=== PATIENT | male | born 1995 | race Caucasian/White ===

== ENCOUNTER 2019-05-21 11:11 | Emergency (ER) | payer BC, MEDICAID ==
[2019-05-21 11:54] VITALS: BP 119/62
--- NOTE | 2019-05-21 12:38 | UC ---
Lower Extremity/Ankle HPI - HPI Summary HPI Summary: 24 yo male presents with left calf pain. He tells me that over the last few weeks he has noticed intermittent swelling to his left calf. This morning he noticed the calf was swollen and painful and thinks he felt a bump inside. He has a history of lipomas on various areas of his body and thinks this may be one of those, but is unsure. His pain and swelling are improved with rest and elevation. No recent travel. Denies recent illness, injury, fever, chills, SOB, chest pain. No fam hx of blood clots. - History of Current Complaint Chief Complaint: UCLowerExtremity Stated Complaint: LOWER LEG PAIN Time Seen by Provider: 05/21/19 12:37 Hx Obtained From: Patient Onset/Duration: Gradual Onset Severity Initially: Mild Severity Currently: Mild Pain Intensity: 4 Pain Scale Used: 0-10 Numeric - Allergies/Home Medications Allergies/Adverse Reactions: Allergies Allergy/AdvReac Type Severity Reaction Status Date / Time MS Bupropion Allergy Unknown Verified 09/07/16 18:56 [From Wellbutrin] Reaction Details Home Medications: Home Medications Venlafaxine HCl [Venlafaxine HCl ER] 1 powder PO DAILY 05/21/19 [History Confirmed 05/21/19] lamoTRIgine TAB(*) [Lamictal TAB(*)] 1 tab PO DAILY 05/21/19 [History Confirmed 05/21/19] PMH/Surg Hx/FS Hx/Imm Hx Psychological History: Bipolar Disorder Other History Of: Negative For: HIV, Hepatitis B, Hepatitis C - Surgical History Surgical History: Yes Surgery Procedure, Year, and Place: right lower leg - infected area - Family History Known Family History: Positive: Respiratory Disease - brother with asthma, Other - mental health issues, especially anxiety (aunt). Negative: Cardiac Disease, Hypertension - Social History Lives: With Family Alcohol Use: Rare Substance Use Type: None Substance Use Comment - Amount & Last Used: Quit smoking [facility] 02/19 Smoking Status (MU): Never Smoked Tobacco - Immunization History Most Recent Influenza Vaccination: appointment next week Most Recent Tetanus Shot: not sure Most Recent Pneumonia Vaccination: none Review of Systems All Other Systems Reviewed And Are Negative: Yes Constitutional: Positive: Negative Skin: Positive: Negative Respiratory: Positive: Negative Cardiovascular: Positive: Negative Neurovascular: Positive: Negative Musculoskeletal: Positive: Other: - Left calf pain Neurological: Positive: Negative Psychological: Positive: Negative Physical Exam - Summary Physical Exam Summary: GENERAL: NAD. WDWN. No pain distress. SKIN: No rashes, sores, lesions, or open wounds. CHEST: No accessory muscle use. Breathing comfortably and in no distress. CV: Pulses intact PT and DP. Cap refill <2seconds MSK: LEFT CALF: 45cm compared to 44cm in right calf. Mild TTP about mid calf. No nodule appreciated. Negative Tommy sign. NEURO: Alert. Sensations intact and symmetric B/L LEs PSYCH: Age appropriate behavior. Triage Information Reviewed: Yes Vital Signs: Initial Vital Signs Temp 98 F 05/21/19 11:50 Pulse 81 05/21/19 11:50 Resp 18 05/21/19 11:50 BP 119/62 05/21/19 11:50 Pulse Ox 100 05/21/19 11:50 Vital Signs Reviewed: Yes Lower Extremity Course/Dx - Course Course Of Treatment: US: IMPRESSION: 1. NO EVIDENCE FOR DEEP VENOUS THROMBOSIS. 2. SOFT TISSUE MASS IN THE MID MEDIAL THIGH. THIS COULD BE FURTHER EVALUATED WITH MR IMAGING. XR: IMPRESSION: NO EVIDENCE OF FRACTURE. I suspect this soft tissue mass in his thigh is a lipoma as he has had this there for years and has not changed. Discussed results with pt and advised him to f/u with his PCP for further eval of the area and his left calf symptoms. - Differential Dx/Diagnosis Provider Diagnosis: Mass of soft tissue of left lower extremity Discharge - Sign-Out/Discharge Documenting (check all that apply): Patient Departure All imaging exams completed and their final reports reviewed: Yes - Discharge Plan Condition: Stable Disposition: HOME Patient Education Materials: Lipoma (ED), Soft Tissue Mass (ED) Forms: *Work Release Referrals: Diego Davidson MD [Primary Care Provider] - 2 Weeks Additional Instructions: If you develop a fever, shortness of breath, chest pain, new or worsening symptoms - please call your PCP or go to the ED immediately. Your XR was normal today. Your ultrasound showed that you have a mass in the soft tissue of your leg. Given your history of soft tissue lipomas elsewhere on your body, this could be another one of those - but further investigation is warranted. Please schedule an appointment with your primary doctor for a recheck within 2- 3 weeks Continue to rest, ice, and elevate your leg to reduce pain and swelling. - Billing Disposition and Condition Condition: STABLE Disposition: Home
== END 2019-05-21 13:59 | disposition home or self-care (01) ==
LOC: UCEAST 11:11
DX: R22.42 Localized swelling, mass and lump, left lower limb (principal); F31.9 Bipolar disorder, unspecified
CPT/HCPCS: 99211; G0463

== ENCOUNTER 2019-11-14 18:56 | Emergency (ER) | payer BC, MEDICAID ==
--- OUTSIDE RECORDS SUMMARY | 2019-11-14 19:02 | XMS REPORT ---
:1995 Author Organization [facility] Care Team Providers Name Role Phone Gordo Gregorio Primary Care Physician Unavailable Allergies, Adverse Reactions, Alerts Allergy Code CodeSystem Reaction Severity Criticality Status Start Substance Date Moderate Medications Medication Medication Medication Start Stop Route Dose Status Fill Code CodeSystem Date Date Instructions venlafaxine 093699 RxNorm 2019- oral 37.5 mg 1 active 1 tablet 02-14 tablet once a day extended for 30 day(s) release 24hr once a day lamotrigine 203741 RxNorm 2019- oral 100 mg 1 active Take 1 tablet 02-14 tablet once a day once a for 30 day(s) day lamotrigine 078620 RxNorm 2019- oral 25 mg completed for 30 3-05 09- tablet day(s) venlafaxine 891830 RxNorm 2019- oral 37.5 mg completed for 30 -05 09- tablet day(s) extended release 24hr Problems Problem Name Code CodeSystem Alternate Alternate Start End Status Narrative Code CodeSystem Date Date Bipolar II 16007907 SNOMED-CT Active disorder 3-22 Bipolar II 15438119 SNOMED-CT Active disorder 3-22 Generalized 90267328 SNOMED-CT Active anxiety 3-27 disorder Relevant diagnostic tests/laboratory data Narrative No Information Procedures Procedure Code CodeSystem Target Date of Status Service Device Device Device Name Site Procedure Delivery Code Name UID Location Psychotherap [id number] SNOMED-CT () 2019-06-20 complete Mental y, 45 04 d Health- minutes with [facility] patient [address], [id number] [phone] Psychotherap [id number] SNOMED-CT () 2019-07-12 complete Mental y, 45 04 d Health- minutes with [address], [phone] Psychotherap [id number] SNOMED-CT () 2019-08-01 complete Mental y, 45 04 d Health- minutes with [facility] patient [address], [id number] [phone] Psychotherap [id number] SNOMED-CT () 2019-09-06 complete Mental y, 45 04 d Health- minutes with [facility] patient [address], [id number] [phone] Psychotherap [id number] SNOMED-CT () 2019-04-25 complete Mental y, 45 04 d Health- minutes with [facility] patient [address], [phone] [phone] Psychotherap [id number] SNOMED-CT () 2019-04-16 complete Mental y, 45 04 d Health- minutes with [facility] patient [address], [phone] [phone] Psychotherap [id number] SNOMED-CT () 2019-02-11 complete Mental y, 45 04 d Health- minutes with [facility] patient [address], [phone] Psychotherap [id number] SNOMED-CT () 2019-02-18 complete Mental y, 45 04 d Health- minutes with [facility] patient [address], [id number] Psychotherap [id number] SNOMED-CT () 2019-02-25 complete Mental y, 45 04 d Health- minutes with [facility], [id number] [phone] Psychotherap [id number] SNOMED-CT () 2019-03-06 complete Mental y, 45 04 d Health- minutes with [facility] patient [address], [phone] Psychotherap [id number] SNOMED-CT () 2019-03-20 complete Mental y, 45 04 d Health- minutes with [facility] patient [address], [phone] Office or [id number] SNOMED-CT () 2019-02-14 complete Mental other 7 d Health- outpatient [facility] visit for County [address], established [id number] patient, [phone] which requires at least 2 of these 3 chinchilla components: An expanded problem focused history; An expanded problem focused examination; Medical decision making of low Office or [id number] SNOMED-CT () 2019-04-19 complete Mental other 6 d Health- outpatient [facility] visit for [address], established [phone] patient, [phone] which requires at least 2 of these 3 chinchilla components: A problem focused history; A problem focused examination; Straightforw sukh medical decision making. Counselin Office or [id number] SNOMED-CT () 2019-07-12 complete Mental other 6 d Health- outpatient [facility] visit for [address], established [id number] patient, [phone] which requires at least 2 of these 3 chinchilla components: A problem focused history; A problem focused examination; Straightforw sukh medical decision making. Counselin Office or [id number] SNOMED-CT () 2019-07-12 complete Mental other 6 d Health- outpatient [facility] visit for [address], established [phone] patient, [phone] which requires at least 2 of these 3 chinchilla components: A problem focused history; A problem focused examination; Straightforw sukh medical decision making. Counselin SNOMED-CT () 2019-02-04 complete Mental d Health[address], [phone] SNOMED-CT () 2019-04-02 complete Mental d Health[address], [phone] SNOMED-CT () 2019-06-04 complete Mental d [address], [phone] Encounters/Encounter Diagnoses Encounter Name Encounter Diagnosis Diagnosis Diagnosis Date of Service Code Code Name CodeSystem Diagnosis Delivery Location [facility] - [id number] Bipolar II SNOMED-CT 2019-09-06 Behavioral Individual 30 disorder Health [facility] [address] [place] [address], [phone] Vital Signs No Information Social History Element Description Description Start End Code CodeSystem AdditionalInfo Date Date SexAssignedAtBirth Male 1994-0 M AdministrativeGender 05-19 Hospital Discharge Instructions Reason For Referral Medical Equipment FDA Assessments
--- OUTSIDE RECORDS SUMMARY | 2019-11-14 19:02 | XMS REPORT ---
:1995 Author Organization [facility] Care Team Providers Name Role Phone Gordo Gregorio Primary Care Physician Unavailable Allergies, Adverse Reactions, Alerts Allergy Code CodeSystem Reaction Severity Criticality Status Start Substance Date Moderate Medications Medication Medication Medication Start Stop Route Dose Status Fill Code CodeSystem Date Date Instructions venlafaxine 602781 RxNorm 2019- oral 37.5 mg completed for 30 01-10- tablet day(s) extended release 24hr venlafaxine 244652 RxNorm 2019- oral 37.5 mg 1 active 1 tablet 02-14 tablet once a day extended for 30 day(s) release 24hr once a day lamotrigine 735051 RxNorm 2019- oral 100 mg 1 active Take 1 tablet 02-14- tablet once a day once a for 30 day(s) day lamotrigine 625497 RxNorm 2019- oral 25 mg completed for 30 01-10 tablet day(s) Problems Problem Name Code CodeSystem Alternate Alternate Start End Status Narrative Code CodeSystem Date Date Bipolar II 92791694 SNOMED-CT 2018- Active disorder 3-22 Generalized 44903746 SNOMED-CT Active anxiety 3-27 disorder Bipolar II 48564964 SNOMED-CT 0 Active disorder 3-22 Relevant diagnostic tests/laboratory data Narrative No Information Procedures Procedure Code CodeSystem Target Date of Status Service Device Device Device Name Site Procedure Delivery Code Name UID Location Psychotherap [id number] SNOMED-CT () 2019-06-20 complete Mental y, 45 04 d Health- minutes with [facility] patient [address], [phone] Psychotherap [id number] SNOMED-CT () 2019-07-12 complete Mental y, 45 04 d Health- minutes with [address], [id number] [phone] Psychotherap [id number] SNOMED-CT () 2019-08-01 complete Mental y, 45 04 d Health- minutes with [address], [id number] [phone] Psychotherap [id number] SNOMED-CT () 2019-09-06 complete Mental y, 45 04 d Health- minutes with [address], [id number] [phone] Psychotherap [id number] SNOMED-CT () 2019-09-26 complete Mental y, 45 04 d Health- minutes with [address], [phone] Psychotherap [id number] SNOMED-CT () 2019-10-02 complete Mental y, 45 04 d Health- minutes with [address], [id number] [phone] Psychotherap [id number] SNOMED-CT () 2019-03-06 complete Mental y, 45 04 d Health- minutes with [address], [phone] Psychotherap [id number] SNOMED-CT () 2019-03-20 complete Mental y, 45 04 d Health- minutes with [address], [phone] Psychotherap [id number] SNOMED-CT () 2019-04-25 complete Mental y, 45 04 d Health- minutes with [address], [id number] [phone] Psychotherap 190644 SNOMED-CT () 2019-10-08 complete Mental y, 45 04 d Health- minutes with [address], [id number] [phone] Psychotherap [id number] SNOMED-CT () 2019-10-15 complete Mental y, 45 04 d Health- minutes with [address], [id number] [phone] Psychotherap [id number] SNOMED-CT () 2019-04-16 complete Mental y, 45 04 d Health- minutes with [address] [place], [phone] Psychotherap [id number] SNOMED-CT () 2019-02-11 complete Mental y, 45 04 d Health- minutes with [facility] patient [address], [phone] Psychotherap [id number] SNOMED-CT () 2019-02-18 complete Mental y, 45 04 d Health- minutes with [facility] patient [address], [id number] [phone] Psychotherap [id number] SNOMED-CT () 2019-02-25 complete Mental y, 45 04 d Health- minutes with [facility] patient [address], [phone] Office or [id number] SNOMED-CT () 2019-02-14 complete Mental other 7 d Health- outpatient [facility] visit for [address], established [id number] patient, [phone] which requires at least 2 of these 3 chinchilla components: An expanded problem focused history; An expanded problem focused examination; Medical decision making of low Office or 186092 SNOMED-CT () 2019-04-19 complete Mental other 6 d Health- outpatient [facility] visit for [address], established [id number] patient, [phone] which requires at least 2 of these 3 chinchilla components: A problem focused history; A problem focused examination; Straightforw sukh medical decision making. Counselin Office or [id number] SNOMED-CT () 2019-07-12 complete Mental other 6 d Health- outpatient [facility] visit for [address], established [id number] patient, [phone] which requires at least 2 of these 3 chinchilla components: A problem focused history; A problem focused examination; Straightforw uskh medical decision making. Counselin Office or [id number] SNOMED-CT () 2019-07-12 complete Mental other 6 d Health- outpatient [facility] visit for [address], established [id number] patient, [phone] which requires at least 2 of these 3 chinchilla components: A problem focused history; A problem focused examination; Straightforw sukh medical decision making. Counselin SNOMED-CT () 2019-02-04 complete Mental d [address], [id number] [phone] SNOMED-CT () 2019-04-02 complete Mental d [address], [phone] SNOMED-CT () 2019-06-04 complete Mental d [address], [phone] Encounters/Encounter Diagnoses Encounter Name Encounter Diagnosis Diagnosis Diagnosis Date of Service Code Code Name CodeSystem Diagnosis Delivery Location [facility] [id number] Bipolar II SNOMED-CT 2019-10-15 Behavioral Individual [address], [phone] Vital Signs No Information Social History Element Description Description Start End Code CodeSystem AdditionalInfo Date Date SexAssignedAtBirth Male 1994-0 M AdministrativeGender 7-14 Hospital Discharge Instructions Reason For Referral Medical Equipment FDA Assessments
--- OUTSIDE RECORDS SUMMARY | 2019-11-14 19:02 | XMS REPORT ---
:1995 Author Name Gordo Gregorio Address [address] [address] Care Team Providers Name Role Phone Gordo Gregorio Unavailable Unavailable Niki Amor Unavailable Unavailable Allergies, Adverse Reactions, Alerts Allergy Code CodeSystem Reaction Severity Status Substance RxNorm Medications Medication Medication Medication Start Route Dose Status Fill Code CodeSystem Date Instructions RxNorm NoCurrentDosage No NoCurrentFrequency Longer Active lamotrigine RxNorm 2019-0 oral 25 mg tablet No for 30 3-07 Longer day(s) Active venlafaxine RxNorm 2019-0 oral 37.5 mg tablet No for 30 3-07 extended release Longer day(s) 24hr Active venlafaxine RxNorm 2019-0 oral 37.5 mg 1 tablet Active 1 tablet 4-11 extended release once a day 24hr once a day for 30 day(s) lamotrigine RxNorm 2019-0 oral 100 mg 1 tablet Active Take 1 tablet 4-11 once a day once a day for 30 day(s) Hospital Discharge Medications Medication Direction Start Date Status Indications Fill Instuctions No Discharge Medication Problems Problem Name Code CodeSystem Start Date End Date Status SNOMED-CT 2018-08-16 Active SNOMED-CT 2018-04-25 Active SNOMED-CT 2018-04-25 Active SNOMED-CT 2018-04-25 Active Laboratory Values/Results Test Test Code Code System Actual Result Date LOINC Procedures Procedure Name Code CodeSystem Target Site Date of Procedure SNOMED-CT () 2019-02-04 SNOMED-CT () 2019-02-14 SNOMED-CT () 2019-02-11 SNOMED-CT () 2019-02-18 SNOMED-CT () 2019-02-25 SNOMED-CT () 2019-03-06 SNOMED-CT () 2019-03-20 SNOMED-CT () 2019-04-02 SNOMED-CT () 2019-04-16 SNOMED-CT () 2019-04-19 SNOMED-CT () 2019-04-25 SNOMED-CT () 2019-06-04 SNOMED-CT () 2019-06-20 SNOMED-CT () 2019-07-12 SNOMED-CT () 2019-07-12 SNOMED-CT () 2019-08-01 Encounter Diagnosis Code CodeSystem Description Date Finding Finding Code Status 70898 CPT Non-Billable - SNOMED-CT Active 3 Vital Signs Vitals Date Value Immunizations Vaccine Name Vaccine Code CodeSystem Date Status Social History Element Description Start Date End Date Code CodeSystem Description SNOMED-CT Hospital Discharge Instructions Reason For Referral
[2019-11-14 19:10] VITALS: BP 125/69
--- NOTE | 2019-11-14 19:29 | UC ---
Throat Pain/Nasal Trung HPI - HPI Summary HPI Summary: 24-year-old male comes in with a chief complaint of 3-4 days of upper respiratory tract infection symptoms. He also has right eye irritation and drainage for the last 1 day. He did have some body aches and sore throat. Does have yellow rhinorrhea. No complaint of any shortness of breath. Does not wear contacts. He reports that his eye was crusted check when he woke up this morning. No known trauma to the eye. - History of Current Complaint Chief Complaint: UCEye Stated Complaint: COLD SYMPTOMS, EYE DISCHARGE Time Seen by Provider: 11/14/19 19:10 Pain Intensity: 0 - Allergies/Home Medications Allergies/Adverse Reactions: Allergies Allergy/AdvReac Type Severity Reaction Status Date / Time bupropion Allergy triggered Verified 11/14/19 19:10 manic episode Home Medications: Home Medications Benzol Peroxide* 11/14/19 [History] Clindamycin 1% TOPICAL(NF) [Cleocin-T 1% TOPICAL(NF)] 1 applic .SEE ORDER [History] Otc Topical Med For Face* 11/14/19 [History] PMH/Surg Hx/FS Hx/Imm Hx Previously Healthy: Yes Other History Of: Negative For: HIV, Hepatitis B, Hepatitis C - Surgical History Surgical History: Yes Surgery Procedure, Year, and Place: right lower leg - infected area - Family History Known Family History: Positive: Respiratory Disease - brother with asthma, Other - mental health issues, especially anxiety (aunt). Negative: Cardiac Disease, Hypertension - Social History Alcohol Use: None Substance Use Type: None Substance Use Comment - Amount & Last Used: Quit smoking [facility] 02/19 Smoking Status (MU): Never Smoked Tobacco - Immunization History Most Recent Influenza Vaccination: appointment next week Most Recent Tetanus Shot: not sure Most Recent Pneumonia Vaccination: none Review of Systems All Other Systems Reviewed And Are Negative: Yes Constitutional: Positive: Other - see hpi Skin: Positive: Negative Eyes: Positive: Drainage - rt, Eye Redness - rt ENT: Positive: Sore Throat, Nasal Discharge, Sinus Congestion Respiratory: Positive: Negative Cardiovascular: Positive: Negative Gastrointestinal: Positive: Negative Motor: Positive: Negative Neurovascular: Positive: Negative Musculoskeletal: Positive: Negative Neurological: Positive: Negative Psychological: Positive: Negative Is Patient Immunocompromised?: No Physical Exam Triage Information Reviewed: Yes Appearance: No Pain Distress, Well-Nourished, Ill-Appearing - mild Vital Signs: Initial Vital Signs Temp 98 F 11/14/19 19:06 Pulse 90 11/14/19 19:06 Resp 18 11/14/19 19:06 BP 125/69 11/14/19 19:06 Pulse Ox 98 11/14/19 19:06 Vital Signs Reviewed: Yes Eyes: Positive: Conjunctiva Inflamed - rt, Discharge - rt ENT: Positive: Pharyngeal erythema, Nasal congestion, Nasal drainage, TMs normal Neck: Positive: Supple Respiratory: Positive: Lungs clear, Normal breath sounds, No respiratory distress Cardiovascular: Positive: RRR Musculoskeletal: Positive: Strength Intact, ROM Intact Neurological: Positive: Alert, Muscle Tone Normal Psychological: Positive: Age Appropriate Behavior Skin Exam: Normal Throat Pain/Nasal Course/Dx - Course Course Of Treatment: DISCUSSED VIRAL VERSES BACTERIAL INFECTIONS AND THE ROLE OF ANTIBIOTICS. THE PATIENT PREFERS TO BE ON ANTIBIOTICS AT THIS TIME. - Differential Dx/Diagnosis Provider Diagnosis: Conjunctivitis, Upper respiratory infection Discharge ED - Sign-Out/Discharge Documenting (check all that apply): Patient Departure All imaging exams completed and their final reports reviewed: No Studies - Discharge Plan Condition: Stable Disposition: HOME Prescriptions: Amoxicillin PO (*) [Amoxicillin 875 MG (*)] 875 mg PO BID #20 tab Tobramycin 0.3% OPHTH.DANAY* 1 drop RIGHT EYE Q4H #1 btl Patient Education Materials: Upper Respiratory Infection (ED), Conjunctivitis ( ED) Referrals: Diego Davidson MD [Primary Care Provider] - Additional Instructions: FOLLOW UP WITH YOUR DOCTOR IF NOT COMPLETELY IMPROVED. GET REEVALUATED SOONER IF NOT IMPROVED OR WORSE OR ANY QUESTIONS OR CONCERNS. - Billing Disposition and Condition Condition: STABLE Disposition: Home
== END 2019-11-14 19:30 | disposition home or self-care (01) ==
LOC: UCEAST 18:56
DX: H10.9 Unspecified conjunctivitis (principal); J06.9 Acute upper respiratory infection, unspecified; Z88.8 Allergy status to other drugs, medicaments and biological substances
CPT/HCPCS: 99212; G0463